=== PATIENT | female | born 1990 | race Caucasian/White ===

== ENCOUNTER 2018-06-13 14:22 | Inpatient (IN) ==
[2018-06-14] MEDS ORDERED: PHENOBARBITAL IV PRN (14:48)
[2018-06-14] MEDS ORDERED: LIBRIUM PO PRN (14:48)
[2018-06-14] MEDS ORDERED: MOTRIN PO PRN (14:48)
[2018-06-14] MEDS ORDERED: BENTYL PO PRN (14:48)
[2018-06-14] MEDS ORDERED: IMODIUM PO PRN (14:48)
[2018-06-14] MEDS ORDERED: SENOKOT PO PRN (14:48)
[2018-06-14] MEDS ORDERED: TYLENOL PO PRN (14:48)
[2018-06-14] MEDS ORDERED: DESYREL PO PRN (14:48)
[2018-06-14] MEDS ORDERED: SINEMET 25/100 PO PRN (14:48)
[2018-06-14] MEDS ORDERED: DULCOLAX PR PRN (14:48)
[2018-06-14] MEDS ORDERED: ATARAX PO PRN (14:48)
[2018-06-14] MEDS ORDERED: ROBAXIN PO PRN (14:48)
[2018-06-14] MEDS ORDERED: ZOFRAN ODT PO PRN (14:48)
[2018-06-14] MEDS ORDERED: D5W 1,000 ML IV PRN (14:48)
[2018-06-14] MEDS ORDERED: MAALOX PLUS LIQUID PO PRN (14:48)
[2018-06-14] MEDS ORDERED: SEROQUEL PO PRN (14:48)
[2018-06-14] MEDS ORDERED: ZOFRAN IV PRN (14:48)
[2018-06-14 15:36] LABS: URINE SOURCE VOIDED
[2018-06-14 15:52] LABS: BILIRUBIN URINE NEGATIVE (NEGATIVE); BLOOD URINE NEGATIVE (NEGATIVE); CLARITY CLEAR (CLEAR); COLOR YELLOW; GLUCOSE URINE NEGATIVE (NEGATIVE); KETONE URINE TRACE mg/dL (NEGATIVE); LEUKOCYTES URINE TRACE (NEGATIVE); NITRITE URINE NEGATIVE (NEGATIVE); PH URINE 6.5; PROTEIN URINE 2+(100 mg/dL) mg/dL (NEGATIVE); SP GRAVITY URINE 1.015; URINE WBC <10 /HPF (<10); UROBILINOGEN URINE NORMAL
[2018-06-14 15:53] LABS: URINE BACTERIA 1+ /HFP; URINE CAST NONE SEEN /LPF; URINE CRYSTAL NONE SEEN /HPF; URINE EPITHELIAL CELLS <10 /HPF (<10); URINE YEAST NONE SEEN /HPF
[2018-06-14] MEDS ORDERED: TUBERSOL ID ONE (16:00)
[2018-06-14 16:08] LABS: HEMATOCRIT 39.1 % (37.0-47.0); HEMOGLOBIN 12.6 g/dL (12.0-16.0); MCH 29.9 PG (27-31); MCHC 32.2 g/dL (33-37); MCV 92.9 FL (81-99); MPV 10.8 FL (7.4-10.4); RBC 4.21 XMIL (4.2-5.4); RDW 12.3 % (11.5-14.5); WBC 8.86 X1000 (4.8-10.8)
[2018-06-14 16:12] LABS: INR 0.87; PROTIME 12.3 Seconds (11.0-16.0)
[2018-06-14 16:16] LABS: UR AMPHETAMINES QUAL NONE DETECTED (NONE DETECT); UR BARBITUATES QUAL NONE DETECTED (NONE DETECT); UR BENZODIAZEPIN QUAL PRESUMPTIVE POSITIVE (NONE DETECT); UR CANNABINOIDS QUAL NONE DETECTED (NONE DETECT); UR COCAINE QUAL PRESUMPTIVE POSITIVE (NONE DETECT); UR METHADONE QUAL NONE DETECTED (NONE DETECT); UR METHAMPHETAMINE QUAL NONE DETECTED (NONE DETECT); UR OPIATES QUAL NONE DETECTED (NONE DETECT); UR OXYCODONE QUAL NONE DETECTED (NONE DETECT); UR PCP QUAL NONE DETECTED (NONE DETECT); UR PROPOXYPHENE QUAL NONE DETECTED (NONE DETECT); UR TCA QUAL NONE DETECTED (NONE DETECT)
[2018-06-14 16:24] LABS: AMYLASE 51 U/L (20-200); LIPASE 34 U/L (13-60)
[2018-06-14 16:25] LABS: AGAP 11; ALKALINE PHOSPHATASE 64 U/L (32-104); BUN 12 mg/dL (8-22); CALCIUM 8.5 mg/dL (8.8-10.2); CHLORIDE 103 mmol/L (98-107); COSMO 283; CREATININE 0.9 mg/dL (0.5-0.9); ESTIMATED GFR > 60; GLUCOSE 100 mg/dL (70-104); GOT 16 U/L (10-30); GPT 10 U/L (10-36); POTASSIUM 3.9 mmol/L (3.5-5.1); SODIUM 142 mmol/L (136-145); TCO2 28 mmol/L (25-35); TOTAL BILIRUBIN < 0.15 mg/dL (0.20-1.00); TOTAL PROTEIN 6.8 g/dL (6.3-8.3)
[2018-06-14] MEDS: NICODERM PATCH TD PRN (18:53)
[2018-06-14] MEDS: REQUIP PO SCH (21:09)
[2018-06-14] MEDS: DEPAKOTE PO SCH (21:09)
[2018-06-14] MEDS: GRALISE PO SCH (21:09)
[2018-06-14] MEDS: KLONOPIN PO SCH (21:09)
[2018-06-14] MEDS: REMERON PO SCH (21:09)
[2018-06-14] MEDS: SUBOXONE 2 MG/0.5 MG FILM SL SCH (21:10)
[2018-06-15] MEDS: GRALISE PO SCH ×3 (06:38→21:03)
[2018-06-15] MEDS: PROTONIX PO SCH (06:38)
[2018-06-15] MEDS: THERA M PLUS PO SCH (10:21)
[2018-06-15] MEDS: FOLIC ACID PO SCH (10:21)
[2018-06-15] MEDS: DEPAKOTE PO SCH ×2 (10:21→20:29)
[2018-06-15] MEDS: LEXAPRO PO SCH (10:21)
[2018-06-15] MEDS: KLONOPIN PO SCH ×2 (10:21→20:29)
[2018-06-15] MEDS: VITAMIN B-1 PO SCH (10:21)
[2018-06-15] MEDS: NICODERM PATCH TD PRN (10:21)
[2018-06-15] MEDS: SUBOXONE 2 MG/0.5 MG FILM SL SCH ×2 (10:22→21:03)
[2018-06-15] MEDS: REMERON PO SCH (20:30)
[2018-06-15] MEDS: REQUIP PO SCH (20:30)
--- NOTE | 2018-06-16 01:03 | PROGRESS NOTE ---
DATE: 06/15/2018 SUBJECTIVE: Patient notes that still feels bad, still having muscle aches and nausea. No real vomiting. Still lots of abdominal cramping. No swelling in her extremities. No numbness, tingling, weakness. PHYSICAL EXAMINATION: Vital Signs: Reviewed. Temperature 98 degrees, pulse 80, respiratory 18, BP 120/70. General: Patient is awake, alert. Currently, she is in no respiratory distress, pleasant to talk with. HEENT: Normocephalic. Neck: Supple. Cardiovascular: Regular rate. No murmurs. Chest: Clear and nonlabored. Abdomen: Soft. Extremities: Moves all extremities. ASSESSMENT: 1. Nausea, vomiting. 2. Abdominal pain. 3. Myalgias. 4. Paresthesias. 5. Paroxysmal sweating. 6. Opiate abuse, withdrawal and stabilization. PLAN: We will continue patient in the hospital. We will attempt to wean Suboxone as tolerated. We will continue counseling. Further orders as needed. cc: Azam Álvarez MD
[2018-06-16] MEDS: GRALISE PO SCH (05:12)
[2018-06-16] MEDS: PROTONIX PO SCH (06:30)
[2018-06-16 07:44] VITALS: BP 125/75
[2018-06-16] MEDS: LEXAPRO PO SCH (10:00)
[2018-06-16] MEDS: DEPAKOTE PO SCH (10:00)
[2018-06-16] MEDS: THERA M PLUS PO SCH (10:00)
[2018-06-16] MEDS: VITAMIN B-1 PO SCH (10:00)
[2018-06-16] MEDS: FOLIC ACID PO SCH (10:00)
[2018-06-16] MEDS: KLONOPIN PO SCH (10:00)
[2018-06-16] MEDS: SUBOXONE 2 MG/0.5 MG FILM SL SCH (10:01)
--- NOTE | 2018-06-16 16:07 | PROGRESS NOTE ---
DATE: 06/16/2018 SUBJECTIVE: Patient has no new complaints. She is sleeping but easily awakened. OBJECTIVE: Vital Signs: Reviewed. Temp 98 degrees, pulse 72, respiratory 20, BP 125/75. General: Patient is awake, alert, currently in no respiratory distress. Overall pleasant to talk with. HEENT: Normocephalic. Neck: Supple. Cardiovascular: Regular rate. Chest: Clear. Abdomen: Soft. Extremities: Moves all extremities. Neurologic: No changes. ASSESSMENT: 1. Nausea, vomiting. 2. Abdominal pain. 3. Myalgias. 4. Paresthesias. 5. Paroxysmal sweating. 6. Opiate abuse, withdrawal, and stabilization. PLAN: We will continue patient in the hospital. Continue Suboxone. Further orders as needed. Continue counseling. cc: Azam Álvarez MD
--- NOTE | 2018-06-16 18:51 | HISTORY AND PHYSICAL ---
CHIEF COMPLAINT: Nausea, vomiting. HISTORY OF PRESENT ILLNESS: The patient is a 27-year-old female who presented to [facility] secondary to nausea, vomiting, abdominal pain, myalgias and paresthesias. SOCIAL HISTORY: She is , currently is unemployed. Lives at home in [place]. PAST MEDICAL HISTORY: Significant for anxiety, depression, seizures, gastric sleeve surgery in 2016, history of concussions and seizures that were withdrawal related, recurrent pancreatitis, history of anemia. MEDICATIONS: Lexapro 20, Remeron 15 at bedtime, Klonopin 1 mg daily although she states she takes at least 4 mg daily, Depakote 500 twice a day, gabapentin 303 times daily, multivitamin and Requip 1 mg. ALLERGIES: No known drug allergies. REVIEW OF SYSTEMS: CINA score is elevated secondary to frequent hot and cold changes, nausea, occasional emesis. Denies any chest pain or palpitations. States that her skin constantly feels as though it is crawling. Denies any chest pain, palpitations. Denies any fevers or chills. Denies dysuria, frequency, urgency, hesitancy, polyuria or polydipsia. SUBSTANCE ABUSE HISTORY: The patient notes that drugs are destroying her life and she wants "a better life." States she was in [facility] for 15 days in 2017, remained sober for a week, was back at [facility] for 19 days in 2018, remained sober for 2 months. She has been in [place] for psychiatric treatment. Notes she started drinking at age 13, stopped in 2009. Started cocaine at age 15, last use was June of this year. Started opiates at 25, currently taking 10 to 15, sometimes 20 [*] [id number] pills daily. Started smoking at age 13, currently smokes a pack a day. FAMILY HISTORY: Noncontributory. PHYSICAL EXAMINATION: VITAL SIGNS: Reviewed and stable. GENERAL: Patient is awake, alert, oriented. She is currently in no respiratory distress. Very pleasant to talk with, although she is jittery, anxious. On exam constantly moving about. Has be redirected to answer questions. HEENT: Normocephalic. NECK: Supple. CARDIOVASCULAR: Regular rate. No murmurs. CHEST: Clear, nonlabored. ABDOMEN: Soft, nondistended, nontender. EXTREMITIES: Moves all extremities. NEUROLOGIC: No focal neurological changes. SKIN: Warm, dry. No rashes. ASSESSMENT: 1. Nausea, vomiting, abdominal pain. 2. Myalgias. 3. Paresthesias. 4. Paroxysmal sweating. 5. Opiate abuse withdrawal and stabilization with [id number] [*]. PLAN: We will admit patient to the hospital, place her on medication-assisted therapy, Suboxone. We will continue to follow, begin counseling. Further orders as needed. cc: Azam Álvarez MD
== END 2018-06-16 12:20 | disposition home or self-care (01) | DRG 897 ==
LOC: P.DIRADM 06-14 14:24 → P.MEDSURG 06-14 14:45
PROVIDERS: ADMIT Family Medicine; ATTEND Family Medicine
CPT/HCPCS: 80053; 80104; 80301; 80305; 80307; 80320; 81001; 82055; 82150; 83690; 84703; 85027; 85610; 86580; A9270; G0431; G0434; G0477; G0480; G6040